=== PATIENT | male | born 1955 | race African-American/Black ===

== ENCOUNTER 2016-09-21 15:45 | Inpatient (IN) | payer SELFPAY ==
[~2016-09-21] VITALS: Ht 165.1 cm; Wt 62.4 kg
[~2016-09-21 15:45] MED LIST: AMLODIPINE BESYL5 MG PO; CATAPRES0.2 MG PO; HYDROCHLOROTHIA25 MG PO; MOBIC15 MG PO; NORVASC10 MG PO; TYLENOL WITH C1 EACH PO; ZESTRIL,PRINIVI10 M1 PO
[2016-09-21 16:29] LABS: EOSINOPHIL (%) 0 % (0-5); HEMATOCRIT 46.3 % (38.0-50.0); IMMATURE GRANULOCYTE (%) 0.1 % (0.0-0.7); IMMATURE GRANULOCYTE COUNT 0.1 K/uL; LYMPHOCYTE COUNT 1.3 K/uL (1.0-2.8); MCH 31.6 PG (29.0-34.0); MCHC 36.1 G/DL (30.0-36.0); MCV 87.5 FL (86-99); MEAN PLAT.VOLUME 9.9 uM^3 (9.0-12.4); NEUTROPHIL (%) 66.4 % (45-76); NEUTROPHIL COUNT 4.6 K/uL (1.8-6.4); PLATELET COUNT 212 K/uL (156-360); RBC DIS.WIDTH-SD 40.9 % (39-53); RED BLOOD COUNT 5.29 M/uL (4.00-5.50); WHITE BLOOD COUNT 6.9 K/uL (4.1-10.2)
[2016-09-21 16:40] LABS: CHLORIDE 97 mEq/L (99-109); SODIUM 137 mEq/L (136-147)
[2016-09-21 16:42] LABS: GLUCOSE 132 mg/dL (70-99)
[2016-09-21 16:43] LABS: ANION GAP 11 MEQ/L (2-14)
[2016-09-21 16:44] LABS: TOTAL BILIRUBIN 1.3 mg/dL (0.0-1.0)
[2016-09-21 16:46] LABS: ALKALINE PHOSPHATASE 56 IU/L (3-129); GFR ESTIMATE (CALCULATED) > 59 mL/min/
[2016-09-21 16:47] LABS: UREA NITROGEN (BUN) 11 mg/dL (9-23)
[2016-09-21 20:55] LABS: TROP-I INTERPRETATION NEGATIVE; TROPONIN-I 0.03 ng/mL (0.0-0.30)
[2016-09-21 21:46] LABS: LIPASE 8 U/L (1.0-51.0)
[2016-09-22] VITALS (30 sets, daily range): BP systolic 111–205; BP diastolic 67–125
[2016-09-22 02:02] LABS: ADD MIUA? YES; BILIRUBIN NEGATIVE; BLOOD TRACE; COLOR YELLOW ((YELLOW)); GLUCOSE (STRIP) NEGATIVE; KETONES NEGATIVE; LEUKOCYTES NEGATIVE; NITRITE NEGATIVE; PROTEIN (STRIP) >=300; SPECIFIC GRAVITY 1.019 (1.000-1.030); UROBILINOGEN 0.2 MG/DL (0.2-1.0)
[2016-09-22 02:47] LABS: CASTS NONE SEEN /LPF; EPITHELIAL CELLS NONE SEEN; MUCUS NONE SEEN
[2016-09-22 02:48] LABS: AMORPHOUS PHOSPHATE CRYSTALS 3+; BACTERIA NONE SEEN; CRYSTALS PRESENT; RED BLOOD CELLS RARE /HPF (0-5); WHITE BLOOD CELLS NONE SEEN /HPF (0-5)
[2016-09-22 02:57] LABS: TROP-I INTERPRETATION NEGATIVE; TROPONIN-I 0.06 ng/mL (0.0-0.30)
[2016-09-22 05:17] LABS: METH RESISTANT S AUREUS PCR NEGATIVE (NEGATIVE)
[2016-09-22 05:34] LABS: PROBE CHECK PASS; SPECIMEN PROCESSING CONTROL PASS
[2016-09-22 12:56] LABS: EOSINOPHIL (%) 0 % (0-5); HEMATOCRIT 40.6 % (38.0-50.0); IMMATURE GRANULOCYTE (%) 0.1 % (0.0-0.7); LYMPHOCYTE COUNT 1.3 K/uL (1.0-2.8); MCH 32.7 PG (29.0-34.0); MCHC 36.2 G/DL (30.0-36.0); MCV 90.2 FL (86-99); MEAN PLAT.VOLUME 10.4 uM^3 (9.0-12.4); MONOCYTE COUNT 1.2 K/uL (0-0.8); NEUTROPHIL (%) 63.2 % (45-76); NEUTROPHIL COUNT 4.2 K/uL (1.8-6.4); PLATELET COUNT 178 K/uL (156-360); RBC DIS.WIDTH-CV 13.2 % (11.8-14.6); RBC DIS.WIDTH-SD 43.6 % (39-53); WHITE BLOOD COUNT 6.7 K/uL (4.1-10.2)
[2016-09-22 13:23] LABS: ANION GAP 9 MEQ/L (2-14); CHLORIDE 97 MEQ/L (99-109); GFR ESTIMATE (CALCULATED) > 59 mL/min/; GLUCOSE 110 mg/dL (70-99); MAGNESIUM 2.5 mg/dl (1.3-2.7); POTASSIUM 4.8 MEQ/L (3.7-5.4); SAMPLE HEMOLYSIS CHECK 1; SAMPLE ICTERIC CHECK 0; SAMPLE LIPEMIA CHECK 0; SODIUM 132 MEQ/L (136-147); UREA NITROGEN (BUN) 14 mg/dL (9-23)
[2016-09-23] VITALS (11 sets, daily range): BP systolic 99–164; BP diastolic 48–119
[2016-09-23 06:08] LABS: MCH 31.4 PG (29.0-34.0); MCHC 34.6 G/DL (30.0-36.0); MCV 90.7 FL (86-99); MEAN PLAT.VOLUME 10.5 uM^3 (9.0-12.4); PLATELET COUNT 161 K/uL (156-360); RBC DIS.WIDTH-SD 43.1 % (39-53); RED BLOOD COUNT 4.08 M/uL (4.00-5.50); WHITE BLOOD COUNT 6.6 K/uL (4.1-10.2)
[2016-09-23 06:27] LABS: EOSINOPHIL (%) 0.3 % (0-5); IMMATURE GRANULOCYTE (%) 0.2 % (0.0-0.7); LYMPHOCYTE COUNT 1.9 K/uL (1.0-2.8); MONOCYTE (%) 19.9 % (3-12); MONOCYTE COUNT 1.3 K/uL (0-0.8); NEUTROPHIL (%) 50.3 % (45-76); NEUTROPHIL COUNT 3.3 K/uL (1.8-6.4)
[2016-09-23 06:36] LABS: ANION GAP 6 MEQ/L (2-14); CHLORIDE 96 MEQ/L (99-109); GFR ESTIMATE (CALCULATED) > 59 mL/min/; GLUCOSE 85 mg/dL (70-99); POTASSIUM 4.7 MEQ/L (3.7-5.4); SAMPLE HEMOLYSIS CHECK 0; SAMPLE ICTERIC CHECK 0; SAMPLE LIPEMIA CHECK 0; SODIUM 129 MEQ/L (136-147); UREA NITROGEN (BUN) 18 mg/dL (9-23)
[2016-09-23 06:37] LABS: MAGNESIUM 2.1 mg/dl (1.3-2.7)
[2016-09-23] MEDS ORDERED: CLONIDINE HCL0.3 MG PO (12:33)
[2016-09-23] MEDS ORDERED: AMLODIPINE BESY10 MG PO (12:33)
[2016-09-23] MEDS ORDERED: LOPRESSOR25 MG PO (12:33)
[2016-09-23] MEDS ORDERED: ASPIR-LOW81 MG PO (12:34)
[2016-09-23 13:18] LABS: ANION GAP 7 MEQ/L (2-14); CHLORIDE 97 MEQ/L (99-109); GFR ESTIMATE (CALCULATED) > 59 mL/min/; GLUCOSE 90 mg/dL (70-99); POTASSIUM 4.6 MEQ/L (3.7-5.4); SAMPLE HEMOLYSIS CHECK 0; SAMPLE ICTERIC CHECK 0; SAMPLE LIPEMIA CHECK 0; SODIUM 129 MEQ/L (136-147); UREA NITROGEN (BUN) 17 mg/dL (9-23)
== END 2016-09-23 13:25 | disposition home or self-care (01) | DRG 305 ==
LOC: EME 15:45 → EDOF 09-22 03:20 → 4WEST 09-22 03:20
PROVIDERS: Internal Medicine; Internal Medicine Critical Care Medicine; Internal Medicine Nephrology; Personal Emergency Response Attendant
DX: I16.0 Hypertensive urgency (principal); I10 Essential (primary) hypertension; T46.5X6A Underdosing of other antihypertensive drugs, initial encounter; Z91.128 Patient's intentional underdosing of medication regimen for other reason; I20.0 Unstable angina; I51.7 Cardiomegaly; R10.13 Epigastric pain; F10.10 Alcohol abuse, uncomplicated; F17.210 Nicotine dependence, cigarettes, uncomplicated
CPT/HCPCS: 71020; 71275; 74176; 80048; 80048 91; 80053; 81003; 83690; 83735; 84100; 84484; 85025; 87641; 93005; 93306; 99281; 99285; C9113; J1650; J1885; J2270; J2405; J7030; J7120